=== PATIENT | male | born 1930 | race Two or more races ===

== ENCOUNTER 2017-07-22 15:41 | Emergency (ER) | payer MEDICARE, MEDICAID ==
[~2017-07-22] VITALS: Ht 172.7 cm; Wt 63.5 kg
--- NOTE | 2017-07-22 16:17 | Emergency Room Report ---
History of Present Illness General Chief Complaint: Lower Extremity Injury Source: Patient, Family Member Present Illness HPI 87-year-old male, walk-in with right knee and right shoulder pain after accidentally tripped and fell and knocked him over approximately 30 hours ago. Patient denies hitting head, and does not take aspirin or other anticoagulant. Took Celebrex at home for pain. Patient able to ambulate, does not have reduced range of motion to right knee or right shoulder allegedly had prior injury to right shoulder "tendon" and previous surgery and at baseline unable to raise arms above horizon bilaterally. Allergies: Coded Allergies: ACETAMINOPHEN (Verified Allergy, Unknown, 01/30/12) ASPIRIN (Verified Allergy, Unknown, 01/30/12) HYDROMORPHONE (Verified Allergy, Unknown, 01/30/12) MORPHINE (Verified Allergy, Unknown, RASH, 01/30/12) PROPOXYPHENE (Verified Allergy, Unknown, 01/30/12) Patient History Past Medical History: see triage record Past Surgical History: none, other - "shoulder surgery" Pertinent Family History: none Social History: Denies: smoking, alcohol use, drug use Immunizations: UTD Reviewed Nursing Documentation: PMH: Agreed, PSxH: Agreed Nursing Documentation-PMH Past Medical History: No Stated History Review of Systems All Other Systems: negative except mentioned in HPI Physical Exam Vital Signs Date Time Temp Pulse Resp B/P (MAP) Pulse Ox O2 Delivery O2 Flow Rate FiO2 07/22/17 15:45 97.7 91 20 116/59 99 Room Air Sp02 EP Interpretation: reviewed, normal General Appearance: normal inspection, well appearing, no apparent distress, alert, GCS 15, non-toxic Head: normocephalic, atraumatic Eyes: bilateral eye PERRL, bilateral eye EOMI ENT: normal ENT inspection, hearing grossly normal, normal voice Neck: normal inspection, full range of motion, supple, no bony tend Respiratory: normal inspection, lungs clear, normal breath sounds, no respiratory distress, no retraction, no wheezing Cardiovascular #1: regular rate, rhythm, no edema Gastrointestinal: normal inspection, normal bowel sounds, non tender, soft, no guarding, no hernia Genitourinary: no CVA tenderness Musculoskeletal: normal inspection, back normal, normal range of motion, Pavithra' s Sign negative, other - Right knee abrasion to lateral aspect with obvious effusion of join. ROM intact. Mild ttp. Right shoulder with normal rounded anatomy, no obvious deformity. Chronically unable to raise arms aobe horizon. Neurologic: normal inspection, alert, oriented x3, responsive, monument setter helper III-XII nml as tested, speech normal Psychiatric: normal inspection, judgement/insight normal, mood/affect normal Skin: normal inspection, normal color, no rash Medical Decision Making ER Course Xrays negative for acute fx, dislocation on ED review Soft soft tissue swelling DONTAE wrap provided Recommended RICE DC home Patient is instructed to follow up with their primary care doctor within 5 days. Strict return precautions discussed with patient such as fever, chills, worsening/severe pain, nausea, vomiting, which may indicate severe illness. Patient verbalizes understanding and agrees with plan. Please note that this Emergency Department Report was dictated using [employer] control clerk technology software, occasionally this can lead to erroneous entry secondary to interpretation by the dictation equipment Other X-Ray Diagnostic Results Other X-Ray Diagnostic Results #1: X-Ray ordered: Right knee # of Views/Limited Vs Complete: 3 View Indication: Pain Interpretation: no dislocation, no fractures, other - +_soft tissue welling Electronically Signed by: Dr Ian Wheeler MD Other X-Ray Diagnostic Results #2: X-Ray ordered: Right shoulder # of Views/Limited Vs Complete: 3 View Indication: Pain Interpretation: no dislocation, no fractures, other - +soft tissue swelling Electronically Signed by: Dr Ian Wheeler MD Last Vital Signs Date Time Temp Pulse Resp B/P (MAP) Pulse Ox O2 Delivery O2 Flow Rate FiO2 07/22/17 15:45 97.7 91 20 116/59 99 Room Air Status: improved Disposition: HOME, SELF-CARE IAN WHEELER M.D. Jul 22, 2017 16:17
[2017-07-22 17:51] VITALS: BP 122/64
--- NOTE | 2017-07-23 09:10 | Diagnostic Imaging Report ---
Indication: PAIN, status post fall Technique: 3 views of the right knee Comparison: None Findings:No acute fractures. There is suggestion of a small suprapatellar effusion. Unusual suprapatellar calcifications are demonstrated, relation to the synovium uncertain. There are dense vascular calcifications. The joint spaces are preserved. Impression:No acute bony trauma Possible small joint effusion
--- NOTE | 2017-07-23 09:11 | Diagnostic Imaging Report ---
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 No acute fractures. No dislocations. The bones are demineralized Impression:No acute process
== END 2017-07-22 18:00 | disposition home or self-care (01) ==
LOC: EMR 16:45
DX: M25.561 Pain in right knee (principal); M25.511 Pain in right shoulder; Z88.6 Allergy status to analgesic agent
CPT/HCPCS: 99284